=== PATIENT | female | born 1955 | race Caucasian/White ===

== ENCOUNTER → 2019-12-19 | Outpatient (CLI) | payer BC ==
--- NOTE | 2019-12-23 09:18 | SLEEPHOME ---
DATE: 12/19/2019 ORDERED BY: Florence Sparks DO Diagnostic home sleep testing was performed due to concern for the obstructive sleep apnea syndrome in this patient with a history of hypertension and coronary artery disease. For testing, a nocturnal T3 respiratory monitoring device was used. Continuous record was made of pulse, oxygen saturation, air flow, chest and abdominal strain, and body position. Nine hours and 59 minutes of data were reviewed. There was 9 hours and 57 minutes marked as time in bed. During the interval marked time in bed, there were 127 respiratory events identified of 10 seconds in duration or greater for a respiratory event index of 12.7. The events were primarily obstructive, 15 mixed and central apneas were seen. Baseline pulse rate 86. Pulse rate ranged 73 to 105. Baseline saturation was 94%. Saturations fell to 81%. Testing was performed in both the supine and nonsupine positions. IMPRESSION: Abnormal home sleep testing with repetitive respiratory events and oxygen desaturations to 81% and a respiratory event index of 12.7 is consistent with the obstructive sleep apnea syndrome. RECOMMENDATION: The patient should be encouraged to undergo a formal sleep evaluation. MTDD
== END ==
LOC: M SLEEP HO 09:53
PROVIDERS: ATTEND Family Medicine
DX: I10 Essential (primary) hypertension (principal); I25.10 Atherosclerotic heart disease of native coronary artery without angina pectoris; I51.89 Other ill-defined heart diseases; G47.33 Obstructive sleep apnea (adult) (pediatric); G47.31 Primary central sleep apnea